=== PATIENT | female | born 1955 | race Caucasian/White ===

== ENCOUNTER → 2020-10-25 | Day surgery (SDC) | payer OTHER ==
[~2020-10-25] MED LIST: ALLEGRA ALLERG180 MG PO; CERTAGEN1 EACH PO; FLONASE ALLER15.8 ML; LISINOPRIL 10MG10 MG PO; PAROXETINE 20MG20 MG PO; PRILOSEC20 MG PO; VIT D PO; VITAMIN E400 UNI1 PO; ZOCOR10 MG PO; [UNRECOGNIZED DRUG - REMARK]
[2020-10-25 08:51] LABS: HCT 42.4 % (37.0-47.0); MCH 29.5 pg (25.0-31.0); MCV 89.3 fL (78.0-100.0); MPV 10.1 fL (6.0-9.5); RBC 4.75 M/uL (4.20-5.40); RDW 12.2 % (11.5-14.0); WBC 7.2 K/uL (4.0-10.5)
[2020-10-25 09:01] LABS: ALBUMIN 3.9 g/dL (3.4-5.0); BILIRUBIN - TOTAL 0.5 mg/dL (0.2-1.0); BUN/CREAT RATIO (CALC) 11.9 RATIO; CREATININE 0.67 mg/dL (0.51-0.95); GLOBULIN (CALCULATION) 3.4 g/dL; POTASSIUM 3.8 mmol/L (3.5-5.1); TOTAL PROTEIN 7.3 g/dL (6.4-8.2)
== END | disposition home or self-care (01) ==
LOC: FAS 08:05
PROVIDERS: Surgery
DX: D12.3 Benign neoplasm of transverse colon (principal); D13.2 Benign neoplasm of duodenum; K29.50 Unspecified chronic gastritis without bleeding; K21.9 Gastro-esophageal reflux disease without esophagitis; K58.9 Irritable bowel syndrome, unspecified; I10 Essential (primary) hypertension; G47.30 Sleep apnea, unspecified; E78.00 Pure hypercholesterolemia, unspecified; E78.5 Hyperlipidemia, unspecified; Z20.822 Contact with and (suspected) exposure to COVID-19; Z88.8 Allergy status to other drugs, medicaments and biological substances; Z90.49 Acquired absence of other specified parts of digestive tract
CPT/HCPCS: 36415; 80053; J1610; J2704; J7120

== ENCOUNTER 2021-07-08 14:35 | Emergency (ER) | payer OTHER ==
[2021-07-08 16:47] LABS: BASOPHIL 1.1 % (0-2); EOSINOPHIL 1.4 % (0-7); HCT 38.8 % (37.0-47.0); HGB 12.1 g/dl (12.5-16.0); LYMPHOCYTE 32.3 % (15-48); MCH 26.4 pg (25.0-31.0); MCHC 31.2 g/dL (32.0-36.0); MCV 84.7 fL (78.0-100.0); MONOCYTE 11.9 % (0-12); MPV 10.4 fL (6.0-9.5); NRBC 0; PLT 368 K/uL (150-400); RBC 4.58 M/uL (4.20-5.40); RDW 12.9 % (11.5-14.0); WBC 7.4 K/uL (4.0-10.5)
[2021-07-08 16:49] LABS: BILIRUBIN NEGATIVE (NEGATIVE); BLOOD NEGATIVE Ery/uL (NEGATIVE); CLARITY CLEAR (CLEAR); COLOR YELLOW (YELLOW); GLUCOSE (U) NORMAL (NORMAL); LEUKOCYTES NEGATIVE Leu/uL (NEGATIVE); NITRITE NEGATIVE (NEGATIVE); PROTEIN NEGATIVE (NEGATIVE); UROBILINOGEN 0.2 mg/dL (0.2-1.0)
[2021-07-08 17:00] LABS: ALBUMIN 3.8 g/dL (3.4-5.0); BILIRUBIN - TOTAL 0.2 mg/dL (0.2-1.0); BUN/CREAT RATIO (CALC) 16.1 RATIO; CREATININE 0.62 mg/dL (0.51-0.95); GLOBULIN (CALCULATION) 3.2 g/dL; POTASSIUM 4.1 mmol/L (3.5-5.1)
[2021-07-08] MEDS ORDERED: NAPROSYN375 MG PO (17:26)
[2021-07-08] MEDS ORDERED: FLEXERIL5 MG PO (17:26)
== END 2021-07-08 18:21 | disposition home or self-care (01) ==
LOC: FER 14:35
PROVIDERS: Internal Medicine
DX: R10.31 Right lower quadrant pain (principal); M25.551 Pain in right hip; I10 Essential (primary) hypertension
CPT/HCPCS: 36415; 80053; 81003; 83690; 84145; 85025

== ENCOUNTER → 2021-12-12 | Day surgery (SDC) | payer OTHER ==
[~2021-12-12] VITALS: Ht 157.5 cm; Wt 61.2 kg
[~2021-12-12] MED LIST changes: +FLEXERIL5 MG PO; +NAPROSYN375 MG PO
[2021-12-12 09:32] LABS: HCT 40.8 % (37.0-47.0); HGB 12.5 g/dl (12.5-16.0); MCH 25.1 pg (25.0-31.0); MCHC 30.6 g/dL (32.0-36.0); MCV 81.9 fL (78.0-100.0); MPV 10.8 fL (6.0-9.5); RBC 4.98 M/uL (4.20-5.40); RDW 14.1 % (11.5-14.0); WBC 7.6 K/uL (4.0-10.5)
[2021-12-12 10:11] LABS: ALBUMIN 3.9 g/dL (3.4-5.0); BILIRUBIN - TOTAL 0.6 mg/dL (0.2-1.0); BUN/CREAT RATIO (CALC) 8.1 RATIO; CREATININE 0.62 mg/dL (0.51-0.95); GLOBULIN (CALCULATION) 3.8 g/dL; POTASSIUM 4.4 mmol/L (3.5-5.1); TOTAL PROTEIN 7.7 g/dL (6.4-8.2)
== END | disposition home or self-care (01) ==
LOC: FAS 08:56
PROVIDERS: Surgery
DX: Z12.11 Encounter for screening for malignant neoplasm of colon (principal); Z86.010 Personal history of colon polyps
CPT/HCPCS: 36415; 80053; J1610; J2250; J2704; J7120